=== PATIENT | female | born 1980 | race Caucasian/White ===

== ENCOUNTER 2018-11-08 05:31 | Inpatient (IN) | payer BC ==
[2018-11-08 06:25] LABS: Hemoglobin 13.6 g/dL (12.0-16.0); Mean Corpuscular HGB CONC 34.4 g/dL (32.0-36.0); Mean Corpuscular Hemoglobin 31.1 pg (27.0-31.0); Mean Corpuscular Volume 90.2 fL (78.0-98.0); Mean Platelet Volume 7.4 fL (7.4-10.4); Platelet Count 202 thou/uL (130-400); Red Blood Cell (RBC) Count 4.38 mill/uL (4.20-5.40); White Blood Cell (WBC) Count 7.9 thou/uL (4.8-10.8)
[2018-11-08 06:35] VITALS: BMI 25.2
[2018-11-08] MEDS ORDERED: Ondansetron PF 4 MG/2 ML Vial IVP PRN ×3 (06:46→10:36)
[2018-11-08] MEDS ORDERED: Promethazine HCl 25 MG/ML VIAL IM PRN ×2 (06:46→07:58)
[2018-11-08] MEDS ORDERED: Lactated Ringer's 1,000 ML IV SCH (06:46)
[2018-11-08] MEDS ORDERED: hydrALAZINE 20 MG/ML VIAL SLOW IVP PRN ×2 (06:46→10:36)
[2018-11-08] MEDS ORDERED: Oxytocin 10 UNITS/ML VIAL ONE ×2 (06:57→08:14)
[2018-11-08] MEDS ORDERED: Metoclopramide HCl 10 MG/2 ML VIAL ONE ×2 (06:57→14:45)
[2018-11-08] MEDS ORDERED: Fentanyl 100 MCG/2 ML VIAL ONE (06:57)
[2018-11-08] MEDS ORDERED: Ondansetron PF 4 MG/2 ML Vial ONE ×2 (06:57→14:45)
[2018-11-08] MEDS ORDERED: CEFAZOLIN 2 GM in Premix Bag 1 BAG IVPB SCH (07:00)
[2018-11-08] MEDS ORDERED: Bicitra 30 ML UDCUP PO SCH (07:00)
[2018-11-08] MEDS ORDERED: MORPHINE 5 MG/10 ML PF VIAL ONE (07:04)
[2018-11-08 07:05] LABS: Syphilis Antibody Nonreactive (Nonreactive); Syphilis Antibody Index 0.05 S/CO (<1.00 Non-Reactive)
[2018-11-08 07:06] LABS: HBSAg Index 0.16 S/CO (0-0.99); Hep B Surf Ag Non-Reactive S/CO (NonReactive)
[2018-11-08] MEDS ORDERED: Ropivacaine 0.2% 550 ML 750 ML NERVE BLCK SCH ×2 (07:30→07:45)
--- NOTE | 2018-11-08 07:33 | PDOC.LDHP ---
Labor and Delivery H&P Chief complaint: scheduled section HPI: Pt is a 37yo @ 40 weeks who declines MAY if she made it to 40 weeks without spontaneous labor. Current gestational age (weeks): 40 Due date: 11/07/18 Grav: 2 Para: 1 OB History Details: previous CS for NRFHT Current complications: none Abnormal US findings: No Current medications: pre- vitamins, iron Previous surgical history: low tranverse CS Allergies/Adverse Reactions: Allergies Allergy/AdvReac Type Severity Reaction Status Date / Time Sulfa (Sulfonamide Allergy Verified 11/08/18 06:35 Antibiotics) Social history: none - Physical Exam Vital signs reviewed and normal: yes General: NAD Heart: RRR Lungs: CTAB Abdomen: gravid Extremeties: no edema FHT: category 1 - OB Labs Blood type: O RH: positive Antibody Screen: negative HIV: negative RPR: negative HEPSAg: negative 1 hour GCT: negative GBS: negative Urine drug screen: negative Rubella: immune - Assessment L&D Assessment: scheduled repeat section - Plan Plan: admit to L&D, to OR for section, informed consent obtained, anesthesia consult for pain management -: A/P: RCS today, discussed OnQ pump for post op pain control, patient consents to placement.
[2018-11-08] MEDS ORDERED: ePHEDrine/0.9% NaCl/PF SYRINGE 50 mg/10 ml ONE (07:37)
[2018-11-08] MEDS ORDERED: PHENYLEPHRINE-NS 100 MCG/ML 10 ML SYRINGE ONE (07:37)
[2018-11-08] MEDS ORDERED: diphenhydrAMINE 50 MG/ML VIAL IVP PRN (07:58)
[2018-11-08] MEDS ORDERED: HYDROmorphone 2 MG/ML VIAL SLOW IVP PRN (07:58)
[2018-11-08] MEDS ORDERED: Meperidine HCl/PF 25 MG/ML VIAL SLOW IVP PRN (07:58)
[2018-11-08] MEDS ORDERED: Naloxone HCl 0.4 mg/ml Vial IV PRN (07:58)
[2018-11-08] MEDS ORDERED: Ondansetron HCl/PF 4 MG/2 ML Vial IVP PRN (07:58)
[2018-11-08] MEDS ORDERED: Naloxone HCl 0.4 mg/ml Vial IVP PRN ×2 (07:58)
[2018-11-08] MEDS ORDERED: L&D-Morphine 4 MG/ML VIAL SLOW IVP PRN (07:58)
[2018-11-08] MEDS ORDERED: Promethazine HCl 25 MG SUPP PR PRN (07:58)
[2018-11-08] MEDS ORDERED: Ketorolac Tromethamine 30 MG/ML VIAL IVP PRN (07:58)
[2018-11-08] MEDS ORDERED: Communication Order-Pharmacy FS SCH (08:00)
[2018-11-08] MEDS ORDERED: Ketorolac Tromethamine 30 MG/ML VIAL IVP SCH (08:00)
[2018-11-08] MEDS ORDERED: Lidocaine 1% (PF) 30 ML VIAL ONE (08:07)
[2018-11-08] MEDS ORDERED: diphenhydrAMINE 25 MG CAP PO PRN (10:36)
[2018-11-08] MEDS ORDERED: Bisacodyl 10 MG SUPP PR PRN (10:36)
[2018-11-08] MEDS ORDERED: Simethicone Chewable 80 MG TAB PO PRN (10:36)
[2018-11-08] MEDS ORDERED: HYDROcodone/Acetaminophen 5/325 mg Tablet PO PRN ×2 (10:36)
[2018-11-08] MEDS ORDERED: Lanolin Ointment 7 GM TUBE TOP PRN (10:36)
--- NOTE | 2018-11-08 11:04 | OP ---
DATE OF PROCEDURE: 11/08/2018 PREOPERATIVE DIAGNOSES: 1. A 40 weeks' gestation. 2. Previous section. 3. Declines trial of labor after . POSTOPERATIVE DIAGNOSES: Status post repeat low-transverse section. PROCEDURES PERFORMED: 1. Repeat low-transverse section. 2. Placement of ON-Q pain pump. SOAKER HIDES: Nikki Montana MD. COMPLICATIONS: None. ANESTHESIA: Spinal per Dr. Tubbs. ESTIMATED BLOOD LOSS: Approximately 600 mL. QUANTITATIVE BLOOD LOSS: Pending at the time of dictation. OPERATIVE FINDINGS: 1. Low-transverse hysterotomy without extension. 2. Normal-appearing uterus, tubes, and ovaries bilaterally. 3. Vigorous male , Apgars 8 and 9, weight 8 pounds to [facility]. 4. Hysterotomy hemostatic after closure. 5. Normal-appearing placenta with 3-vessel cord. DESCRIPTION OF PROCEDURE: The patient was taken back to the OR with IV fluids running. When she was in the OR, she was set up for spinal anesthesia. After anesthesia was obtained, she was placed in dorsal supine position with a left lateral tilt. The abdomen was then prepped and draped for section. A Fontanez catheter was placed using sterile technique. After the patient was draped in, the surgeons were scrubbed in. The anesthesia was tested and found to be adequate. A Pfannenstiel skin incision was made with a scalpel. Skin incision was carried down through the subcutaneous tissue and the fascia. Once the fascia was reached, it was incised in the midline and extended superolaterally using curved Beverly scissors. Oswaldo clamps were then placed at the superior border of the fascia, which was sharply and bluntly dissected off the rectus abdominis muscles in both caudad and cephalad direction, allowing adequate space for delivery of the . The rectus muscles were then bluntly . The peritoneum was bluntly in the midline and stretched. An Sage O retractor was placed into the peritoneal cavity for retraction, visualization, and protection of the wound. The bladder reflection was noted to be pulled up over the lower uterine segment. It was dissected down and away from the planned hysterotomy site using Metzenbaum scissors and fine dissection. A low transverse hysterotomy was then made with a scalpel. The uterus was bluntly entered and stretched laterally. Amniotomy was performed with clear fluid noted. The infant was delivered without difficulty through the hysterotomy. The nose and mouth were suctioned. The infant was dried and handed off to special care nurses in attendance after the cord was doubly clamped and cut. Cord blood was collected. The placenta was delivered. Uterus was exteriorized, massaged firm, and cleared of clot and debris. The uterus was returned to the abdominal cavity. The hysterotomy was inspected and no extensions were noted. The hysterotomy was reapproximated and closed with Monocryl suture in a running locked fashion. After the hysterotomy was closed, the fundus was noted to be firm. The hysterotomy was irrigated and suction dried. No areas of bleeding were noted. The Sage O retractor was then removed from the abdominal cavity. The peritoneum was reapproximated with plain gut suture. Two ON-Q catheter tips were placed through the skin, subcutaneous tissue, and fascia and directed down towards the contralateral corners of the incision between the fascia and the rectus muscle. The rectus fascia was then reapproximated with PDS suture in a running fashion. After the fascia was reapproximated, the subcutaneous tissue was irrigated and dried. Any small areas of bleeding were controlled with Bovie cauterization. Plain gut suture was used to reapproximate the subcutaneous layer. The skin was closed with 4-0 Monocryl and dressed with Dermabond dressing. The patient tolerated the procedure well. There were no complications. The lap, sponge, and instrument counts were correct x2. Job ID: [id number]
[2018-11-08] MEDS ORDERED: Adacel (T-DAP) 0.5 ML SYRINGE IM ONE (12:30)
[2018-11-08] MEDS: Ibuprofen 800 MG TAB PO SCH (13:45)
[2018-11-09 04:39] LABS: Mean Corpuscular HGB CONC 34.9 g/dL (32.0-36.0); Mean Corpuscular Hemoglobin 31.9 pg (27.0-31.0); Mean Corpuscular Volume 91.2 fL (78.0-98.0); Platelet Count 166 thou/uL (130-400); Red Blood Cell (RBC) Count 3.75 mill/uL (4.20-5.40); White Blood Cell (WBC) Count 10.5 thou/uL (4.8-10.8)
--- NOTE | 2018-11-09 06:44 | PDOC.PP ---
Post Progress Note Post Day #: 1 Subjective: Patient doing well. No significant overnight events. Patient has slowly advanced diet and is doing well. Plans to breast and bottle feed. Had arenas catheter taken out at 1:00 AM, has yet to void. PO intake tolerated: yes Flatus: yes Ambulation: yes Vital Signs (12 hours) Temp Pulse Resp BP Pulse Ox 11/09/18 00:00 98.4 F 71 18 105/58 L 97 11/08/18 20:00 98 11/08/18 19:09 98.5 F 67 20 109/54 L 94 L Weight Weight 70.76 kg - Physical Examination General: NAD Cardiovascular: RRR Respiratory: non-labored breathing Abdominal: + bowel sounds, lochia (minimal), no distention, appropriately TTP Fundus firm & at: below umbilicus Extremities: negative homans (B) Skin: no rash Deviation from normal: C/S incision covered with pressure dressing which was clean, dry, & intact Neurological: no gross focal deficits Psychiatric: A&Ox3, normal affect Result Diagrams: 11/09/18 04:29 Additional Labs: Post Labs Blood Type O POSITIVE 11/08/18 06:15 Hep Bs Antigen Non-Reactive S/CO (NonReactive) 11/08/18 06:15 (1) Delivery Delivered Code(s): O82 - ENCOUNTER FOR DELIVERY WITHOUT INDICATION Status: Acute - Assessment/Plan Routine PP Care - POD #1, s/p rLTCS - Routine care - Encourage ambulation - ADAT - Progressing well - Rh positive Dispo: Patient progressing well. Plan for d/c home tomorrow or Sunday.
[2018-11-09] MEDS: Ibuprofen 800 MG TAB PO SCH ×3 (07:11→21:00)
[2018-11-09] MEDS: Ferrous Sulfate 325 MG TAB PO SCH ×3 (07:11→21:00)
[2018-11-09] MEDS: Docusate Calcium (SURFAK) 240 MG CAP PO SCH ×3 (07:11→21:00)
[2018-11-09] MEDS: Prenatal Vitamin 1 TAB PO SCH (09:09)
--- NOTE | 2018-11-10 01:40 | PDOC.PP ---
Post Progress Note Post Day #: 2 Subjective: No overnight events. Pain well controlled. Voiding and stooling. Lochia less than a period. Passing gas. PO intake tolerated: yes Flatus: yes Ambulation: yes Vital Signs (12 hours) Temp Pulse Resp BP Pulse Ox 11/09/18 20:30 98.1 F 72 18 116/70 98 11/09/18 17:45 98.3 F 72 16 114/71 98 Weight Weight 70.76 kg - Physical Examination General: NAD Cardiovascular: no m/r/g, RRR Abdominal: + bowel sounds, lochia (minimal), appropriately TTP Fundus firm & at: at umbilicus Skin: CS incision dry & intact Neurological: no gross focal deficits Psychiatric: A&Ox3, normal affect Result Diagrams: 11/09/18 04:29 Additional Labs: Post Labs Blood Type O POSITIVE 11/08/18 06:15 Hep Bs Antigen Non-Reactive S/CO (NonReactive) 11/08/18 06:15 - Assessment/Plan Term , delivered - POD #2, s/p rLTCS - Continue routine PP care - Discharge home today Carrie Martinez MD PGY-2 Pt was discussed with Dr Mccauley who agrees with the above documentation and plan Addendum - Attending - Attending Attestation Date/Time: 11/10/18 0325 I personally evaluated the patient and discussed the management with Dr. Martinez. I agree with the Assessment and Plan documented above.
[2018-11-10] MEDS: Ibuprofen 800 MG TAB PO SCH (05:02)
[2018-11-10] MEDS: Ferrous Sulfate 325 MG TAB PO SCH (09:28)
[2018-11-10] MEDS: Prenatal Vitamin 1 TAB PO SCH (09:29)
[2018-11-10] MEDS: Docusate Calcium (SURFAK) 240 MG CAP PO SCH (09:29)
[2018-11-10 11:34] VITALS: BP 118/67; TEMP 98.4
== END 2018-11-10 13:40 | disposition home or self-care (01) | DRG 788 ==
LOC: L&D 05:31 → 3SW 11:13
PROVIDERS: ADMIT Obstetrics & Gynecology; ATTEND Obstetrics & Gynecology
PROC: 10D00Z1 Extraction of Products of Conception, Low, Open Approach (ICD-10-PCS; principal; 2018-11-08)
DX: O34.211 Maternal care for low transverse scar from previous cesarean delivery (principal); Z88.2 Allergy status to sulfonamides; Z67.40 Type O blood, Rh positive; O48.0 Post-term pregnancy; Z3A.40 40 weeks gestation of pregnancy; Z37.0 Single live birth
CPT/HCPCS: 36415; 51702; 85027; 86780; 86850; 86900; 86901; 87340; A4306; J0690; J2001; J2274; J2405; J2590; J2765; J2795; J3010

== ENCOUNTER 2021-08-09 08:14 | Outpatient (CLI) | payer BC | END 2021-08-09 08:15 | disposition home or self-care (01) | LOC: BICULT 08:14 | PROVIDERS: ATTEND Student in an Organized Health Care Education/Training Program | DX: R10.13 Epigastric pain (principal); K80.20 Calculus of gallbladder without cholecystitis without obstruction | CPT/HCPCS: 76705 ==

== ENCOUNTER 2021-10-17 11:11 | Outpatient (CLI) | payer BC ==
[2021-10-17 12:17] LABS: #Basophils 0.1 10x3/uL (0.0-0.2); #Eosinphils 0.2 10x3/uL (0.0-0.5); #Monocytes 0.3 10x3/uL (0.0-1.1); %Basophils 1.1 % (0.0-2.0); %Lymphocytes 33.2 % (18.0-47.0); %Monocytes 6.3 % (0.0-10.0); Hemoglobin 11.2 g/dL (12.0-15.5); Mean Corpuscular HGB CONC 32.6 g/dL (32.0-36.0); Mean Corpuscular Hemoglobin 27.6 pg (27.0-33.0); Mean Corpuscular Volume 84.7 fl (81.6-98.3); Mean Platelet Volume 9.1 fl (7.4-10.4); Platelet Count 270 10x3/uL (150-450); RBC Distribution Width 13.5 % (11.5-14.5); Red Blood Cell (RBC) Count 4.06 10x6/uL (3.90-5.03); White Blood Cell (WBC) Count 5.4 10x3/uL (3.5-10.5)
[2021-10-17 13:09] LABS: ALT (SGPT) 11 U/L (8-55); AST (SGOT) 16 U/L (5-34); Albumin 4.4 g/dL (3.5-5.0); Alkaline Phosphatase 50 U/L (40-110); Anion Gap 10 mmol/L (10-20); BUN (Urea Nitrogen) 15 mg/dL (7.0-18.7); Bilirubin, Total 0.6 mg/dL (0.2-1.2); Calc. Creatinine Clearance 0 mL/min (70-130); Calcium 9.2 mg/dL (7.8-10.44); Carbon Dioxide 28 mmol/L (22-29); Chloride 104 mmol/L (98-107); Estimated GFR 113; Globulin 2.8 g/dL (2.4-3.5); Glucose 88 mg/dL (70-105); Potassium 3.8 mmol/L (3.5-5.1); Protein, Total 7.2 g/dL (6.0-8.3); Sodium 138 mmol/L (136-145)
== END 2021-10-17 11:12 | disposition home or self-care (01) ==
LOC: LABBT 11:11
PROVIDERS: ATTEND Specialist
DX: Z01.812 Encounter for preprocedural laboratory examination (principal); Z20.822 Contact with and (suspected) exposure to COVID-19
CPT/HCPCS: 80053; 85025; 87811

== ENCOUNTER 2021-10-20 07:20 | Day surgery (SDC) | payer BC ==
[2021-10-18 10:12] VITALS: BMI 17.7
[2021-10-20] MEDS ORDERED: Ketorolac Tromethamine 30 MG/ML VIAL ONE (07:52)
[2021-10-20] MEDS ORDERED: Acetaminophen 500 MG TAB ONE (07:52)
[2021-10-20] MEDS ORDERED: Lidocaine 1% MPF 2 ML VIAL ONE (07:53)
[2021-10-20] MEDS ORDERED: Bupivacaine/Epinephrine 0.25% 30 ML VIAL ONE (08:33)
[2021-10-20] MEDS ORDERED: SUGAMMADEX SODIUM 200 MG/2 ML VIAL ONE (08:37)
[2021-10-20] MEDS ORDERED: Lidocaine 2% Jelly 5 ML TUBE ONE (08:37)
[2021-10-20] MEDS ORDERED: fentaNYL Citrate/PF 100 MCG/2 ML SYRINGE ONE (08:37)
[2021-10-20] MEDS ORDERED: Sodium Chloride 0.9% 100 ML ONE (08:38)
[2021-10-20] MEDS ORDERED: CEFAZOLIN 2 GM VIAL ONE (08:38)
[2021-10-20] MEDS ORDERED: Dexamethasone 20 MG/5 ML VIAL ONE (08:46)
[2021-10-20] MEDS ORDERED: PROPOFOL 200 MG/20 ML VIAL ONE (08:46)
[2021-10-20] MEDS ORDERED: Rocuronium Bromide 10 MG/ML (10ML VIAL) ONE (08:46)
[2021-10-20] MEDS ORDERED: Ondansetron PF 4 MG/2 ML Vial ONE (08:46)
[2021-10-20] MEDS ORDERED: HYDROcodone/Acetaminophen 5/325 mg Tablet ONE (11:24)
== END 2021-10-20 12:00 | disposition home or self-care (01) ==
LOC: SDC 07:20
PROVIDERS: ATTEND Specialist
PROC: 0FT44ZZ Resection of Gallbladder, Percutaneous Endoscopic Approach (ICD-10-PCS; principal; 2021-10-20)
DX: K80.12 Calculus of gallbladder with acute and chronic cholecystitis without obstruction (principal); Z88.2 Allergy status to sulfonamides
CPT/HCPCS: 88304; C1713; J0690; J1885; J3490

== ENCOUNTER 2022-06-05 11:32 | Outpatient (CLI) | payer BC | END 2022-06-05 11:33 | disposition home or self-care (01) | LOC: BICMAMMO 11:32 | PROVIDERS: ATTEND Family Medicine | DX: Z12.31 Encounter for screening mammogram for malignant neoplasm of breast (principal) | CPT/HCPCS: 77063; 77067 ==